=== PATIENT | female | born 1985 | race Caucasian/White ===

== ENCOUNTER 2021-12-26 02:45 | Emergency (ER) | payer SELFPAY ==
[2021-12-26 03:19] LABS: ALBUMIN 3.7 g/dL (3.4-5.0); BILIRUBIN - TOTAL 0.2 mg/dL (0.2-1.0); BUN/CREAT RATIO (CALC) 4.1 RATIO; CREATININE 0.73 mg/dL (0.51-0.95); POTASSIUM 3.6 mmol/L (3.5-5.1); TOTAL PROTEIN 6.7 g/dL (6.4-8.2)
[2021-12-26 03:29] LABS: BASOPHIL 0.9 % (0-2); EOSINOPHIL 1.5 % (0-5); HCT 30.8 % (37.0-47.0); HGB 9.2 g/dl (12.5-16.0); MCH 22.8 pg (25.0-31.0); MCHC 29.9 g/dL (32.0-36.0); MCV 76.4 fL (78.0-100.0); MONOCYTE 10.2 % (0-12); MPV 9.9 fL (6.0-9.5); NEUTROPHIL 60.2 % (41-80); NRBC 0; PLT 347 K/uL (150-400); RBC 4.03 M/uL (4.20-5.40); RDW 19.7 % (11.5-14.0); WBC 4.5 K/uL (4.0-10.5)
== END 2021-12-26 04:36 | disposition home or self-care (01) ==
LOC: FER 02:45
PROVIDERS: Emergency Medicine
DX: G40.909 Epilepsy, unspecified, not intractable, without status epilepticus (principal); Z88.8 Allergy status to other drugs, medicaments and biological substances
CPT/HCPCS: 36415; 70450; 80053; 84703; 85025; J1885